=== PATIENT | female | born 1990 | race Caucasian/White ===

== ENCOUNTER 2017-05-22 00:48 | Emergency (ER) | payer SELFPAY ==
--- OUTSIDE RECORDS SUMMARY | 2017-05-22 00:51 | XMS REPORT | Clinical Summary ---
:1990 Author Organization [facility] Address [address] [place] [address] Care Team Providers Name Role Phone Asked, No Pcp Primary Care Provider Unavailable Allergies No Known Allergies Current Medications Prescription Sig. Disp. Refills Start Date End Date Status ondansetron (ZOFRAN) Take 1 tablet (4 28 tablet 0 02/20/2017 02/27/2017 4 MG tablet mg total) by mouth every 6 (six) hours for 7 days. cephalexin (KEFLEX) Take 2 capsules 42 capsule 0 02/20/2017 02/27/2017 250 MG capsule (500 mg total) by mouth 3 (three) times a day for 7 days. Active Problems Not on file Encounters Date Type Specialty Care Team Description 02/20/2017 Emergency Emergency Medicine Wingkun, Pyelonephritis (Primary Dx ); Faraz Alatorre MD Fever, unspecified fever cause after 05/21/2016 Social History Tobacco Use Types Packs/Day Years Used Date Former Smoker Smokeless Tobacco: Never Used Comments: smokes vaporizer now Alcohol Use Drinks/Week oz/Week Comments Yes "occasional" once every 2 weeks. 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 Oxygen Saturation 98% 02/20/2017 5:55 AM PROFESSOR OF INDUSTRIAL TECHNOLOGY Inhaled Oxygen Concentration - - Weight 65.8 kg (145 lb) 02/20/2017 5:54 AM PROFESSOR OF INDUSTRIAL TECHNOLOGY Height 152.4 cm (5') 02/20/2017 5:54 AM PROFESSOR 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 The accuracy of the calculation is poor when the creatinine is normal. Calculated values >90 mL/min/1.73m2 are not reported. This equation has not been validated in children (<18 years), women, the elderly (>70 years), or ethnic groups other than Caucasians and Americans. Specimen Performing Laboratory Plasma specimen [facility] DEPARTMENT OF PATHOLOGY AND GENOMIC MEDICINE [address] [place] [address] Manual differential (02/20/2017 6:11 AM) Component Value Ref Range Manual differential PERFORMED Neutrophils 92.0 (H) 36.0 - 66.0 % Lymphocytes 4.0 (L) 24.0 - 44.0 % Monocytes 3.0 0.0 - 6.0 % Eosinophils 1.0 0.0 - 6.0 % Basophils 0.0 0.0 - 1.2 % Metamyelocytes 0 0 - 1 % Promyelocytes 0 0 - 1 % Platelet slide review Cooper adequate Anisocytosis slight Polychromasia slight Ovalocytes few Specimen Performing Laboratory [facility] DEPARTMENT OF PATHOLOGY AND GENOMIC MEDICINE [address] [place] [address] CBC with platelet and differential (02/20/2017 6:11 AM) Component Value Ref Range WBC 19.2 (H) 4.2 - 11.0 k/uL RBC 5.53 4.04 - 5.86 m/uL HGB 10.3 (L) 11.5 - 15.3 g/dL HCT 33.9 (L) 34.0 - 45.0 % MCV 61.3 (L) 80.0 - 98.0 fL MCH 18.6 (L) 27.0 - 34.0 pg MCHC 30.4 (L) 31.5 - 36.5 g/dL RDW - SD 33.2 (L) 37.0 - 51.0 fL MPV 11.4 (H) 7.4 - 10.4 fL Platelet count 193 150 - 400 k/uL Nucleated RBC 0.00 /100 WBC Neutrophils 92.0 (H) 36.0 - 66.0 % Lymphocytes 4.0 (L) 24.0 - 44.0 % Monocytes 3.0 0.0 - 6.0 % Eosinophils 1.0 0.0 - 6.0 % Basophils 0.0 0.0 - 1.2 % Specimen Performing Laboratory Blood [facility] DEPARTMENT OF PATHOLOGY AND GENOMIC MEDICINE [address] [place] [address] Lactic acid level (02/20/2017 6:11 AM) Component Value Ref Range Lactic acid 1.2 0.5 - 2.2 mmol/L Specimen Performing Laboratory Blood [facility] DEPARTMENT OF PATHOLOGY AND GENOMIC MEDICINE [facility] [place] [address] [place] [address] Comprehensive metabolic panel (02/20/2017 6:11 AM) Component Value Ref Range Sodium 135 135 - 150 mEq/L Potassium 3.4 (L) 3.5 - 5.0 mEq/L Chloride 101 100 - 109 mEq/L CO2 26 24 - 32 mmol/L Anion gap 8 7 - 15 mEq/L Comment: Starting from May , anion gap calculation no longer incorporates potassium. Please note the change. BUN 14 7 - 18 mg/dL Creatinine 0.8 0.8 - 1.5 mg/dL Glucose 97 65 - 100 mg/dL Calcium 8.9 8.6 - 10.7 mg/dL Protein 7.6 6.3 - 8.2 g/dL Albumin 3.9 3.2 - 5.0 g/dL A/G ratio 1.1 0.7 - 3.8 Alkaline phosphatase 84 30 - 120 U/L AST 22 15 - 37 U/L ALT 25 (L) 30 - 65 U/L Total bilirubin 1.9 (H) 0.2 - 1.2 mg/dL Specimen Performing Laboratory Plasma specimen [facility] DEPARTMENT OF PATHOLOGY AND GENOMIC MEDICINE [address] [place] [address] Urinalysis screen and microscopy, with reflex to culture (02/20/2017 6:01 AM) Component Value Ref Range Specimen site Clean catch Color, UA Mirta Appearance, UA Cloudy Specific gravity, UA 1.018 1.001 - 1.035 pH, UA 5.0 5.0 - 8.5 Protein, UA 3+ (A) Negative Glucose, UA Negative Negative Ketones, UA Negative Negative Bilirubin, UA Negative Negative Blood, UA Small (A) Negative Nitrite, UA Positive (A) Negative Urobilinogen, UA 2.0 (A) <2.0 Leukocyte esterase, UA Large (A) Negative Epithelial cells, UA Many /HPF WBC, UA >200 (H) 0 - 5 /HPF RBC, UA 103 (H) 0 - 5 /HPF Bacteria, UA Few None seen Yeast, UA Many (A) Yeast with pseudohyphae, UA None seen Specimen Performing Laboratory Urine [facility] DEPARTMENT OF PATHOLOGY AND GENOMIC MEDICINE [address] [facility] [place] [address] hCG qualitative, urine screen (02/20/2017 6:01 AM) Component Value Ref Range hCG qualitative, urine Negative Negative Comment: The manufacturers stated sensitivity of HcG test for serum is >/=10 mIU/ml and urine is >/=20mIU/ml. Specimen Performing Laboratory Urine [facility] DEPARTMENT OF PATHOLOGY AND GENOMIC MEDICINE [address] [place] [address] [place] [address] Gram stain (02/20/2017 6:01 AM) Component Value Ref Range Gram stain result Many WBC's Many Gram negative rods Comment: Specimen Information Specimen Source: Urine Specimen Site: Clean catch Specimen Performing Laboratory Urine [facility] DEPARTMENT OF PATHOLOGY AND GENOMIC MEDICINE [address] [place] [id number] Urine culture (02/20/2017 6:01 AM) Component Value Ref Range Urine culture isolate Escherichia coli >10-5 cfu/ml (A) Comment: Specimen Information Specimen Source: Urine Specimen Site: Clean catch Urine culture isolate Mixed Gram positive alexander 10-3 cfu/ml (A) Urine culture isolate Gardnerella vaginalis >10-5 cfu/ml (A) Specimen Performing Laboratory Urine [facility] DEPARTMENT OF PATHOLOGY AND GENOMIC MEDICINE [address] [place] [id number] Organism Antibiotic Method Susceptibility Escherichia coli Ampicillin MICHAEL >16 mcg/mL: Resistant Escherichia coli Amoxicillin/Clavulanate MICHAEL 16/8 mcg/mL: Resistant Escherichia coli Amikacin MICHAEL <=4 mcg/mL: Susceptible Escherichia coli Aztreonam MICHAEL <=1 mcg/mL: Susceptible Escherichia coli Ceftazidime MICHAEL <=0.5 mcg/mL: Susceptible Escherichia coli Ciprofloxacin MICHAEL <=0.5 mcg/mL: Susceptible Escherichia coli Ceftriaxone MICHAEL <=0.5 mcg/mL: Susceptible Escherichia coli Cefuroxime Sodium MICHAEL <=4 mcg/mL: Susceptible Escherichia coli Cefazolin MICHAEL 8 mcg/mL: Resistant Escherichia coli Cefipime MICHAEL <=0.5 mcg/mL: Susceptible Escherichia coli Nitrofurantoin MICHAEL <=16 mcg/mL: Susceptible Escherichia coli Cefoxitin MICHAEL <=4 mcg/mL: Susceptible Escherichia coli Gentamicin MICHAEL <=1 mcg/mL: Susceptible Escherichia coli Imipenem MICHAEL <=0.25 mcg/mL: Susceptible Escherichia coli Levofloxacin MICHAEL <=1 mcg/mL: Susceptible Escherichia coli Tobramycin MICHAEL 1 mcg/mL: Susceptible Escherichia coli Ampicillin/Sulbactam MICHAEL >16/8 mcg/mL: Resistant Escherichia coli Trimethoprim/Sulfamethoxazole MICHAEL >2/38 mcg/mL: Resistant Escherichia coli Tetracycline MICHAEL >8 mcg/mL: Resistant Escherichia coli Piperacillin/Tazobactam MICHAEL 4/4 mcg/mL: Susceptible Escherichia coli Ertapenem MICHAEL <=0.125 mcg/mL: Susceptible Escherichia coli Tigecycline MICHAEL <=0.5 mcg/mL: Susceptible after 05/21/2016
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
[2017-05-22] MEDS ORDERED: HYDROCODONE/APAP 7.5/325 MG TAB ONE (02:00)
[2017-05-22 04:40] LABS: Urine Specific Gravity >1.030 (1.005-1.030)
[2017-05-22 04:40] LABS: Urine Blood 3+ (NEG); Urine Glucose NEGATIVE (NEG); Urine Protein 1+ (NEG); Urine Specific Gravity >1.030 (1.005-1.030)
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
== END 2017-05-22 03:14 | disposition home or self-care (01) ==
LOC: ER 00:48
DX: S00.83XA Contusion of other part of head, initial encounter (principal); Y04.8XXA Assault by other bodily force, initial encounter; Z88.0 Allergy status to penicillin; F17.210 Nicotine dependence, cigarettes, uncomplicated
CPT/HCPCS: 70450; 70486; 71046; 76377; 81003; 81025; 99284